=== PATIENT | female | born 1940 | race Caucasian/White ===

== ENCOUNTER 2017-09-08 11:38 | Emergency (ER) | payer MEDICARE, OTHER ==
--- NOTE | 2017-09-08 12:39 | EDM.PDOC ---
ED HPI GENERAL MEDICAL PROBLEM - General Chief Complaint: Lower Extremity Injury/Pain Stated Complaint: FELL YESTERDAY AND LEFT FOOT IS SORE Time Seen by Provider: 09/08/17 11:58 Source of Information: Reports: Patient History Limitations: Reports: No Limitations - History of Present Illness INITIAL COMMENTS - FREE TEXT/NARRATIVE: 77 yo presents with left foot pain. Yesterday she was walking on sidewalk and tripped landing on left side. Injured left hip and left foot. She was able to stand and walk after fall. She did not hit her head. after the fall she did ice her foot. Left foot continues to be red and painful Left Feet Pain Score (Numeric/FACES): 5 Left Hip Pain Score (Numeric/FACES): 3 - Related Data Allergies Allergy/AdvReac Type Severity Reaction Status Date / Time fluoxetine [From Prozac] Allergy Cannot Verified 09/08/17 11:59 Remember raloxifene [From Evista] Allergy Cannot Verified 09/08/17 11:59 Remember sertraline Allergy Cannot Verified 09/08/17 11:59 Remember Home Meds: Home Meds Albuterol Sulfate [Proair Respiclick] 90 mcg IH Q6H PRN 09/08/17 [History] Anastrozole [Arimidex] 1 mg PO DAILY 09/08/17 [History] Aspirin 81 mg PO DAILY 09/08/17 [History] Calcium Carbonate/Vitamin D3 [Calcium 500-Vit D3 200 Caplet] 1 tab PO DAILY [History] Donepezil [Aricept] 5 mg PO BEDTIME 09/08/17 [History] Enalapril Maleate 10 mg PO DAILY 09/08/17 [History] Ferrous Sulfate 325 mg PO DAILY 09/08/17 [History] Furosemide [Lasix] 20 mg PO DAILY 09/08/17 [History] Gabapentin [Neurontin] 600 mg PO TID 09/08/17 [History] Lutein 10 mg PO DAILY 09/08/17 [History] Mirtazapine 30 mg PO BEDTIME 09/08/17 [History] Multivitamin [Multi-Vitamin Daily] 1 tab PO DAILY 09/08/17 [History] Oxybutynin Chloride 5 mg PO BEDTIME 09/08/17 [History] Simvastatin [Zocor] 20 mg PO BEDTIME 09/08/17 [History] Past Medical History HEENT History: Reports: Impaired Vision Cardiovascular History: Reports: Hypertension Respiratory History: Reports: COPD Gastrointestinal History: Reports: GERD Musculoskeletal History: Reports: Osteoarthritis Neurological History: Reports: Other (See Below) Other Neuro History: dementia Psychiatric History: Reports: Dementia Hematologic History: Reports: Anemia Oncologic (Cancer) History: Reports: Breast - Infectious Disease History Infectious Disease History: Reports: Chicken Pox, Measles, Mumps - Past Surgical History Female Surgical History: Reports: Hysterectomy, Mastectomy Musculoskeletal Surgical History: Reports: Hip Replacement, Other (See Below) Other Musculoskeletal Surgeries/Procedures:: toe surgery Social & Family History - Tobacco Use Smoking Status *Q: Never Smoker - Caffeine Use Caffeine Use: Reports: Coffee - Recreational Drug Use Recreational Drug Use: No Review of Systems - Review of Systems Review Of Systems: See Below Constitutional: Denies: Fever Respiratory: Denies: Shortness of Breath, Wheezing Cardiovascular: Denies: Chest Pain ED EXAM, GENERAL - Physical Exam Exam: See Below Exam Limited By: No Limitations General Appearance: Alert, WD/WN, No Apparent Distress Respiratory/Chest: No Respiratory Distress, Lungs Clear. No: Crackles, Rhonchi , Wheezing Cardiovascular: Regular Rate, Rhythm Extremities: Other (left lateral dorsom moderate edema with mild erythema and very tender to palpation over forth and fifth metatarsals) Course - Vital Signs Last Recorded V/S: Last Vital Signs Temp 36.9 C 09/08/17 12:06 Pulse 71 09/08/17 12:06 Resp 15 09/08/17 12:06 BP 120/66 09/08/17 12:06 Pulse Ox 96 09/08/17 12:06 - Orders/Labs/Meds Orders: Active Orders 24 hr Category Date Time Status Foot Comp Min 3V Lt [CR] Stat Exams 09/08/17 12:23 Taken - Re-Assessments/Exams Free Text/Narrative Re-Assessment/Exam: 09/08/17 13:09 preliminary read of foot x-ray fifth metatarsal fracture. Pt was placed in waling boot and walker will follow-up with podiatry tomorrow in clinic Departure - Departure Time of Disposition: 13:10 Disposition: Home, Self-Care 01 Condition: Good Clinical Impression: Metatarsal bone fracture Qualifiers: Encounter type: initial encounter Metatarsal bone: fifth Fracture type: closed Fracture alignment: nondisplaced Laterality: left Qualified Code(s): S92.355A - Nondisplaced fracture of fifth metatarsal bone, left foot, initial encounter for closed fracture - Discharge Information Referrals: PCP,None [Primary Care Provider] - Forms: ED Department Discharge Additional Instructions: follow-up with podiatry in the clinic tomorrow. Ice as much as possible over the next 48 hours tylenol 1000 mg every 6 hours for pain keep walking boot on at all times when bearing weight - My Orders Last 24 Hours: My Active Orders 09/08/17 12:23 Foot Comp Min 3V Lt [CR] Stat - Assessment/Plan Last 24 Hours: My Active Orders 09/08/17 12:23 Foot Comp Min 3V Lt [CR] Stat
--- NOTE | 2017-09-09 08:55 | CR ---
Fracture at the base of the fifth metatarsal appears acute. Hardware with joint replacement at the fi rst MTP joint. Moderate to advanced arthritic change at the midfoot. Scattered IP joint degenerative change.
== END 2017-09-08 13:33 | disposition home or self-care (01) ==
LOC: JP.ED 11:38
DX: S92.355A Nondisplaced fracture of fifth metatarsal bone, left foot, initial encounter for closed fracture (principal); I10 Essential (primary) hypertension; J44.9 Chronic obstructive pulmonary disease, unspecified; M19.90 Unspecified osteoarthritis, unspecified site; Z79.82 Long term (current) use of aspirin; Z79.899 Other long term (current) drug therapy; Z88.8 Allergy status to other drugs, medicaments and biological substances; W01.0XXA Fall on same level from slipping, tripping and stumbling without subsequent striking against object, initial encounter
CPT/HCPCS: 73630-26-LT; 73630-LT; 99284

== ENCOUNTER 2020-12-16 14:14 | Emergency (ER) | payer MEDICARE ==
[2020-12-16] MEDS ORDERED: Acetaminophen/HYDROcodone 325-5 MG Tab PO ONE (15:30)
--- NOTE | 2020-12-16 15:36 | EDM.PDOC ---
ED HPI GENERAL MEDICAL PROBLEM - General Chief Complaint: Lower Extremity Injury/Pain Stated Complaint: FELL/RT HIP AND KNEE PAIN,LEFT ELBOW Time Seen by Provider: 12/16/20 15:20 Source of Information: Reports: Patient History Limitations: Reports: No Limitations - History of Present Illness INITIAL COMMENTS - FREE TEXT/NARRATIVE: 80 yo female tripped in her garage early last evening and fell injuring her R knee and hip. Has walked since with difficulty. No meds for pain recently. Onset: Sudden Onset Date: 12/15/20 Duration: Hour(s): (18), Constant Location: Reports: Lower Extremity, Right Quality: Reports: Ache Severity: Moderate Improves with: Reports: Rest Worsens with: Reports: Movement Context: Reports: Trauma Associated Symptoms: Reports: No Other Symptoms Treatments FINANCIAL SERVICES ASSISTANT: Reports: Other (see below) (none) - Related Data Allergies Allergy/AdvReac Type Severity Reaction Status Date / Time fluoxetine [From Prozac] Allergy Cannot Verified 09/08/17 11:59 Remember raloxifene [From Evista] Allergy Cannot Verified 09/08/17 11:59 Remember sertraline Allergy Cannot Verified 09/08/17 11:59 Remember Sulfa (Sulfonamide Allergy Hives Verified 12/16/20 14:56 Antibiotics) Home Meds: Home Meds Furosemide [Lasix] 20 mg PO DAILY 09/08/17 [History] Gabapentin [Neurontin] 600 mg PO TID 09/08/17 [History] Lutein 10 mg PO DAILY 09/08/17 [History] Atropine/Diphenoxylate [Diphenoxylate-Atropine] 1 tab PO QID 12/16/20 [History] Budesonide [Entocort EC] 1 tab PO TID 12/16/20 [History] Pantoprazole [ProTONIX IV] 1 tab PO BID 12/16/20 [History] Potassium Chloride 1 tab PO TID 12/16/20 [History] Past Medical History HEENT History: Reports: Impaired Vision Cardiovascular History: Reports: Hypertension Respiratory History: Reports: COPD Gastrointestinal History: Reports: GERD Musculoskeletal History: Reports: Osteoarthritis Neurological History: Reports: Other (See Below) Other Neuro History: dementia Psychiatric History: Reports: Dementia Hematologic History: Reports: Anemia Oncologic (Cancer) History: Reports: Breast - Infectious Disease History Infectious Disease History: Reports: Chicken Pox, Measles, Mumps - Past Surgical History Female Surgical History: Reports: Hysterectomy, Mastectomy Musculoskeletal Surgical History: Reports: Hip Replacement, Other (See Below) Other Musculoskeletal Surgeries/Procedures:: toe surgery Social & Family History - Tobacco Use Tobacco Use Status *Q: Never Tobacco User - Caffeine Use Caffeine Use: Reports: Coffee Review of Systems - Review of Systems Review Of Systems: See Below Constitutional: Reports: No Symptoms Musculoskeletal: Reports: Joint Pain (R knee and hip). Denies: Joint Swelling Skin: Reports: No Symptoms ED EXAM, GENERAL - Physical Exam Exam: See Below Exam Limited By: No Limitations General Appearance: Alert, WD/WN, No Apparent Distress, Obese Extremities: Normal Inspection, No Pedal Edema, Limited Range of Motion (of knee and hip on right due to pain). No: Normal Range of Motion, Non-Tender, Pedal Edema, Increased Warmth, Redness Neurological: Alert, Oriented, CN II-XII Intact, Normal Cognition, No Motor/Sensory Deficits Psychiatric: Normal Affect, Normal Mood Skin Exam: Warm, Dry, Intact, Normal Color, No Rash Course - Vital Signs Last Recorded V/S: Last Vital Signs Temp 36.5 C 12/16/20 15:05 Pulse 72 12/16/20 15:05 Resp 18 12/16/20 15:05 BP 137/63 12/16/20 15:05 Pulse Ox 95 12/16/20 15:05 - Orders/Labs/Meds Orders: Active Orders 24 hr Category Date Time Status Hip Min 2V or 3V w Pelvis Rt [CR] Stat Exams 12/16/20 15:31 Taken Knee 3V Rt [CR] Stat Exams 12/16/20 15:31 Taken Meds: Medications Discontinued Medications Generic Name Dose Route Start Last Admin Trade Name Adonis PRN Reason Stop Dose Admin Hydrocodone Bitart/Acetaminophen 1 tab 12/16/20 15:30 12/16/20 16:23 Acetaminophen/Hydrocodone 325-5 Mg Tab PO 12/16/20 15:31 1 tab ONETIME ONE Administration - Radiology Interpretation Free Text/Narrative:: R hip X-ray-neg R knee X-ray-neg - Re-Assessments/Exams Free Text/Narrative Re-Assessment/Exam: 12/16/20 16:36 Got some relief with Martin Departure - Departure Time of Disposition: 16:45 Disposition: Home, Self-Care 01 Condition: Fair Clinical Impression: Contusion of right knee Qualifiers: Encounter type: initial encounter Qualified Code(s): S80.01XA - Contusion of right knee, initial encounter Contusion of right hip Qualifiers: Encounter type: initial encounter Qualified Code(s): S70.01XA - Contusion of right hip, initial encounter - Discharge Information *PRESCRIPTION DRUG MONITORING PROGRAM REVIEWED*: No *COPY OF PRESCRIPTION DRUG MONITORING REPORT IN PATIENT SCOTTY: No Instructions: Contusion, [id number] Referrals: PCP,None [Primary Care Provider] - Forms: ED Department Discharge Additional Instructions: Use ibuprofen and/or acetaminophen for pain relief. Substitute norco for the acetaminophen if more pain relief is needed. Use your walker when ambulating to take weight off your injured leg. Recheck with your doctor if not improving by the end of the week. Sepsis Event Note (ED) - Evaluation Sepsis Screening Result: No Definite Risk - Focused Exam Vital Signs: Vital Signs Temp Pulse Resp BP Pulse Ox 12/16/20 15:05 36.5 C 72 18 137/63 95 12/16/20 14:54 36.5 C 72 18 137/63 95 - My Orders Last 24 Hours: My Active Orders 12/16/20 15:31 Hip Min 2V or 3V w Pelvis Rt [CR] Stat Knee 3V Rt [CR] Stat - Assessment/Plan Last 24 Hours: My Active Orders 12/16/20 15:31 Hip Min 2V or 3V w Pelvis Rt [CR] Stat Knee 3V Rt [CR] Stat
--- NOTE | 2020-12-18 12:23 | CR ---
Hip Min 2V or 3V w Pelvis Rt CLINICAL HISTORY: Fall FINDINGS: No fracture or dislocation seen. There is mild joint space narrowing and mild acetabular spurring on the right. Impression: Mild osteoarthritic change No fracture or dislocation
--- NOTE | 2020-12-18 12:24 | CR ---
Knee 3V Rt CLINICAL HISTORY: 3 view FINDINGS: No acute fracture or dislocation is noted. There are no osseous lesions. There is prominence of the intercondylar eminence. There is some mild periarticular patellar spurring. Impression: No fracture or dislocation Osteoarthritic change
== END 2020-12-16 17:40 | disposition home or self-care (01) ==
LOC: JP.ED 14:14
DX: S80.01XA Contusion of right knee, initial encounter (principal); S70.01XA Contusion of right hip, initial encounter; I10 Essential (primary) hypertension; J44.9 Chronic obstructive pulmonary disease, unspecified; K21.9 Gastro-esophageal reflux disease without esophagitis; M19.90 Unspecified osteoarthritis, unspecified site; Z88.8 Allergy status to other drugs, medicaments and biological substances; Z88.2 Allergy status to sulfonamides; Z79.899 Other long term (current) drug therapy; W01.0XXA Fall on same level from slipping, tripping and stumbling without subsequent striking against object, initial encounter; Y92.59 Other trade areas as the place of occurrence of the external cause
CPT/HCPCS: 73502; 73562; 99283; A9270

== ENCOUNTER 2021-11-26 12:50 | Emergency (ER) | payer MEDICARE ==
[2021-11-26] MEDS ORDERED: Ketorolac 30 MG/ML SDV IM ONE (13:40)
[2021-11-26] MEDS ORDERED: Dexamethasone 4 MG/ML SDV IVPUSH ONE (15:29)
[2021-11-26] MEDS ORDERED: Sodium Chloride 0.9% 1,000 ML IV ONE (15:31)
== END 2021-11-26 17:48 | disposition home or self-care (01) ==
LOC: JP.ED 12:50
DX: G43.009 Migraine without aura, not intractable, without status migrainosus (principal); J44.9 Chronic obstructive pulmonary disease, unspecified; I10 Essential (primary) hypertension; Z88.8 Allergy status to other drugs, medicaments and biological substances; Z88.2 Allergy status to sulfonamides; Z79.899 Other long term (current) drug therapy; Z90.710 Acquired absence of both cervix and uterus
CPT/HCPCS: 70450; 96361; 96372; 96374; 99284; J1100; J1885; J7030

== ENCOUNTER 2023-03-20 10:49 | Emergency (ER) | payer MEDICARE ==
[2023-03-20 12:37] LABS: BASOPHILS ABSOLUTE AUTO 0.04 K/uL (0.00-0.10); BASOPHILS PERCENT AUTO 0.2 % (0.1-1.3); EOSINOPHILS ABSOLUTE AUTO 0.15 K/uL (0.00-0.40); EOSINOPHILS PERCENT AUTO 0.7 % (0.0-5.4); HEMATOCRIT 36.5 % (34.3-46.0); HEMOGLOBIN 12.2 g/dL (11.2-15.5); IMMATURE GRAN ABSOLUTE AUTO 0.07 K/uL (0.00-0.23); IMMATURE GRAN PERCENT AUTO 0.3 % (0.0-0.7); LYMPHOCYTES ABSOLUTE AUTO 13.26 K/uL (0.8-3.3); LYMPHOCYTES PERCENT AUTO 61.7 % (11.4-47.7); MEAN CORPUSCULAR HEMOGLOBIN 28.8 pg (31.6-35.5); MEAN CORPUSCULAR HGB CONC 33.4 g/dL (31.6-35.5); MEAN CORPUSCULAR VOLUME 86.1 fL (81.4-99.0); MONOCYTES ABSOLUTE AUTO 0.89 K/uL (0.20-0.90); MONOCYTES PERCENT AUTO 4.1 % (3.3-12.6); NEUTROPHILS ABSOLUTE AUTO 7.07 K/uL (1.0-7.6); PLATELET COUNT,PLT 300 K/uL (130-375); RED BLOOD CELL COUNT 4.24 M/uL (3.77-5.24); WHITE BLOOD CELL COUNT,WBC 21.5 K/uL (3.2-11.0)
[2023-03-20 12:57] LABS: APPEARANCE,URINE CLEAR (CLEAR); BILIRUBIN,URINE NEGATIVE (NEGATIVE); COLOR,URINE YELLOW (YELLOW); GLUCOSE,URINE NEGATIVE (NEGATIVE); KETONES,URINE NEGATIVE (NEGATIVE); LEUKOCYTE ESTERASE,URINE NEGATIVE (NEGATIVE); NITRITE,URINE NEGATIVE (NEGATIVE); OCCULT BLOOD,URINE NEGATIVE (NEGATIVE); PH,URINE 5.5 (5.0-8.0); PROTEIN,URINE NEGATIVE (NEGATIVE); UROBILINOGEN,URINE 0.2 EU/dL (0.2-1.0)
[2023-03-20 13:04] LABS: AMORPHOUS SEDIMENT,URINE NOT SEEN; BACTERIA,URINE NOT SEEN; EPITHELIAL CELLS,URINE FEW; MUCUS,URINE FEW; RBC,URINE 0-5 (0-5); WBC,URINE 0-5 (0-5)
[2023-03-20 13:04] LABS: CALCIUM 8.8 mg/dL (8.5-10.1); CREATININE 1.6 mg/dL (0.6-1.0); EST CRCL DRUG DOSING (CG) 22.18 mL/min; POTASSIUM,K 3.3 mmol/L (3.6-5.2)
[2023-03-20 13:05] LABS: ANION GAP 13.3 mmol/L (5.0-14.0)
[2023-03-20] MEDS ORDERED: Sodium Chloride 0.9% 10 ML Syringe FLUSH PRN (13:14)
[2023-03-20] MEDS ORDERED: Sodium Chloride 0.9% 1,000 ML IV ONE (13:14)
[2023-03-20] MEDS ORDERED: Sodium Chloride 0.9% 500 ML IV ONE (13:16)
== END 2023-03-20 16:43 | disposition home or self-care (01) ==
LOC: JP.ED 10:49
DX: R29.6 Repeated falls (principal); R53.1 Weakness; I13.0 Hypertensive heart and chronic kidney disease with heart failure and stage 1 through stage 4 chronic kidney disease, or unspecified chronic kidney disease; I50.9 Heart failure, unspecified; N18.9 Chronic kidney disease, unspecified; K21.9 Gastro-esophageal reflux disease without esophagitis; Z90.710 Acquired absence of both cervix and uterus; Z79.84 Long term (current) use of oral hypoglycemic drugs; Z79.899 Other long term (current) drug therapy; Z88.2 Allergy status to sulfonamides; Z88.8 Allergy status to other drugs, medicaments and biological substances; Z20.822 Contact with and (suspected) exposure to COVID-19
CPT/HCPCS: 36415; 70450; 71046; 71250; 80048; 81001; 82550; 83605; 83880; 84145; 85025; 99284; J7030; U0002